=== PATIENT | female | born 1955 | race Caucasian/White ===

== ENCOUNTER → 2021-06-14 | Outpatient (CLI) | payer OTHER | LOC: EXRD 11:30 | DX: Z78.0 Asymptomatic menopausal state (principal); M84.350S Stress fracture, pelvis, sequela; M43.25 Fusion of spine, thoracolumbar region; M85.88 Other specified disorders of bone density and structure, other site | CPT/HCPCS: 77080 ==

== ENCOUNTER → 2022-02-06 | Outpatient (CLI) | payer OTHER | LOC: KOH-I 11:39 | DX: M54.42 Lumbago with sciatica, left side (principal); M96.1 Postlaminectomy syndrome, not elsewhere classified | CPT/HCPCS: 72110 ==

== ENCOUNTER → 2022-04-16 | Outpatient (CLI) | payer OTHER | LOC: KOH-I 08:21 | DX: M54.50 Low back pain, unspecified (principal); M43.26 Fusion of spine, lumbar region; M84.350S Stress fracture, pelvis, sequela; M81.0 Age-related osteoporosis without current pathological fracture; M15.9 Polyosteoarthritis, unspecified; S39.013A Strain of muscle, fascia and tendon of pelvis, initial encounter; Z79.899 Other long term (current) drug therapy | CPT/HCPCS: 72148; 72195; 73721 ==